=== PATIENT | female | born 2000 | race Caucasian/White ===

== ENCOUNTER 2020-05-04 22:52 | Emergency (ER) | payer OTHER ==
[~2020-05-04] VITALS: Ht 182.9 cm; Wt 70.5 kg
[2020-05-04 23:10] VITALS: PULSE 80; TEMP 97.9
== END 2020-05-04 23:38 | disposition home or self-care (01) ==
LOC: COL.ER 22:52
DX: S60.512A Abrasion of left hand, initial encounter (principal); S60.511A Abrasion of right hand, initial encounter; W25.XXXA Contact with sharp glass, initial encounter; Y99.0 Civilian activity done for income or pay